=== PATIENT | male | born 1950 | race African-American/Black ===

== ENCOUNTER 2020-12-17 10:22 | Outpatient (CLI) | payer MEDICARE, SELFPAY ==
--- NOTE | 2020-12-17 10:30 | ECG_ITS ---
Measurements Intervals [place] Rate: 79 P: 77 [place]: 157 QRS: 49 QRSD: 77 T: 64 QT: 345 QTc: 396 Interpretive Statements SINUS RHYTHM BASELINE ARTIFACT- I, II, III, AVR, AVL, AVF NORMAL ECG Electronically Signed On 12-17-2020 11:20:54 CDT by Boo Bond D.O.
[2020-12-17 11:50] LABS: Basophils Percent Auto 0.4 % (0.2-1.2); Eosinophils Absolute Auto 0.1 K/mm3 (0-0.3); Eosinophils Percent Auto 1.3 % (0-4.4); Hematocrit 38.8 % (42.0-52.0); Hemoglobin 12.8 g/dL (14.0-18.0); Immature Granulocyte Absolute 0.04 K/mm3 (0.00-0.031); Immature Granulocyte Percent A 0.4 % (0-0.5); Lymphocytes Absolute Auto 1.33 K/mm3 (0.9-3.2); Lymphocytes Percent Auto 12.9 % (18.3-44.2); Mean Corpuscular Hemoglobin 30.5 pg (26-34); Mean Corpuscular Volume 92.4 fl (80-100); Mean Platelet Volume 10.6 fl (7.4-10.4); Monocytes Absolute Auto 0.9 K/mm3 (0.1-0.6); Neutrophils Absolute Auto 7.8 K/mm3 (1.3-6.7); Platelet Count Result 191 k/mm3 (150-375); Red Cell Distribution Width 11.5 % (11.5-14.5); White Blood Count 10.3 K/mm3 (4.5-10.0)
[2020-12-17 12:00] LABS: Prothrombin Time 14.1 Seconds (11.1-14.7)
[2020-12-17 12:05] LABS: Anion Gap 5 mmol/L (8-16); Blood Urea Nitrogen 17 mg/dL (9-20); Calcium 8.6 mg/dL (8.4-10.2); Carbon Dioxide 31 mmol/L (22-30); Chloride 105 mmol/L (98-107); Estimated Glomerular Filt Rate > 60; Glucose 198 mg/dL (75-110); Potassium 3.6 mmol/L (3.4-5.0); Sodium 141 mmol/L (137-145)
== END 2020-12-17 10:23 | disposition home or self-care (01) ==
LOC: ANHSURGERY 10:26
PROVIDERS: PCP Family Medicine; Visit Provider Urology
DX: N40.0 Benign prostatic hyperplasia without lower urinary tract symptoms (principal); E78.5 Hyperlipidemia, unspecified; I10 Essential (primary) hypertension; Z01.818 Encounter for other preprocedural examination
CPT/HCPCS: 36415; 80048; 85025; 85610; 85730; 87077; 87086; 87088; 87147; 87181; 87186; 93005

== ENCOUNTER → 2020-12-19 02:04 | Outpatient (CLI) | payer MEDICARE, SELFPAY ==
[2020-12-19 20:23] LABS: SARS-CoV-2 RNA PCR Negative
== END ==
PROVIDERS: PCP Family Medicine; Visit Provider Urology
DX: Z01.812 Encounter for preprocedural laboratory examination (principal); Z20.822 Contact with and (suspected) exposure to COVID-19
CPT/HCPCS: C9803; U0003; U0005

== ENCOUNTER 2020-12-23 15:02 | Observation (INO) | payer MEDICARE, SELFPAY ==
[2020-12-16 09:18] VITALS: BMI 24.2
[2020-12-22] VITALS (12 sets, daily range): BP systolic 125–163; BP diastolic 70–87; PULSE 72–87; RESP 14–20; TEMP 36.1–36.9; O2SAT 98–100
--- NOTE | 2020-12-22 09:53 | WPDHPUPDATE1 ---
History and Physical Update Update Date/Time: 12/22/20 09:53 History and Physical has been reviewed, including an updated exam of the patient. There are NO changes in the patient's condition. Risks, benefits, and alternatives have been discussed and questions answered. Patient agrees to proceed with procedure.
--- NOTE | 2020-12-22 10:43 | WPDANESEPPF ---
Anes - Initial Pre Proc Eval Procedure: Operation Date: 12/22/20 12:00 Proposed Procedures p Trans Urethral Resection Prostate - Donald Bustillo MD Date/Time: 12/22/20 10:43 Surgeon: Donald Bustillo MD Pre Op Diagnosis: BPH Patient Data Age: 70 Gender: M Height: 5 ft 9 in Weight: 74.5 kg Allergies Allergy/AdvReac Type Severity Reaction Status Date / Time No Known Allergies Allergy Verified 12/22/20 10:41 Home Medications Medication Instructions Recorded Confirmed Type atorvastatin 10 mg PO HS 12/16/20 12/16/20 History clopidogrel 75 mg PO DAILY 12/16/20 12/16/20 History ergocalciferol (vitamin D2) 1,250 mcg PO WEEKLY 12/16/20 12/16/20 History glipizide 10 mg PO DAILY 12/16/20 12/16/20 History levothyroxine 50 mcg PO DAILY 12/16/20 12/16/20 History lisinopril 5 mg PO DAILY 12/16/20 12/16/20 History metformin 1,000 mg PO DAILY 12/16/20 12/16/20 History tamsulosin 0.4 mg PO DAILY 12/16/20 12/16/20 History Patient hx anesthesia problems: none Family hx anesthesia problems: none [facility] Past Medical History Medical History (Updated 12/22/20 @ 10:42 by Gino Miguel MD) Diabetes Hyperlipidemia Hypertension Hypothyroid Social History Social History Years smoked: 1 Smoking status: Former smoker Smoking end date: 12/16/90 Alcohol intake: former Last use: 1 Living arrangements: with family Spiritual care concerns: No Anes - Eval Final PreProcedure Day of Procedure 12/22/20 10:43 Patient weight: normal Heart: regular rate and rhythm Lungs: clear to auscultation Airway: Mallampati scale class II Neurological: alert and oriented Last oral intake: >/= 8 hours ASA classification: III Emergent: no Anesthetic plan: proceed Anesthesia type and monitoring: general LMA and standard monitoring Informed Consent: The patient's anesthetic plan and its attendant risks and benefits were discussed with the patient/family/POA. Questions were solicited and answers provided to the satisfaction of the patient/family/POA.
[2020-12-22] MEDS: LACTATED RINGERS 1,000 ML 30 ML IV CONT ×2 (10:59→12:57)
--- NOTE | 2020-12-22 11:12 | WPDHPUPDATE1 ---
History and Physical Update Update Date/Time: 12/22/20 11:12 History and Physical has been reviewed, including an updated exam of the patient. There are NO changes in the patient's condition. Risks, benefits, and alternatives have been discussed and questions answered. Patient agrees to proceed with procedure.
[2020-12-22 11:17] LABS: Glucose Point of Care 119 (65-105)
[2020-12-22] MEDS: ceFAZolin 2 GM/D5W 50 ML 2 GM/50 ML BAG IVPB (11:29)
[2020-12-22] MEDS: LIDOCAINE HCL 2% GEL UROJET 10 ML PKG MUCOUS MEM (12:16)
--- NOTE | 2020-12-22 12:37 | P.OP_ITS ---
Procedure Note - Detailed Date of procedure: 12/22/20 Pre-op diagnosis: BPH Post-op diagnosis: same (Urinary retention) Procedure performed: Transurethral resection of prostate with urethral dilation Description of procedure: Patient is taken the operative suite and correctly identified. Once anesthesia was obtained he was placed in dorsal lithotomy position and prepped and draped usual sterile fashion. Urethra was dilated up to 28 Panamanian. 276 [place]ian resectoscope sheath was inserted in the bladder. There are no tumors noted. Patient is has a large median lobe in addition to the lateral lobes. Both ureteral orifices were visualized at all times. We started by taking down the sulcus at the 5 and 7 o'clock position. This was carried down from the bladder neck to the verumontanum. We then took down the lateral lobes in a similar fashion. The median lobe was taken down last. Chips were retrieved and sent for analysis. Hemostasis was achieved using electrocautery. 2% viscous lidocaine was inserted into the urethra. Twenty- four Panamanian [address] was placed with 30 cc in the balloon. This was connected to continuous bladder irrigation and placed on some gentle traction. He was taken recovery room stable condition. Anesthesia: GLMA Surgeon: Donald Bustillo MD Drains: Yes Packing: No Pathology: yes Complications: No immediate complications Condition: stable Disposition: PACU
[2020-12-22 12:57] LABS: Glucose Point of Care 98 (65-105)
--- NOTE | 2020-12-22 13:30 | SUR.PHASEI ---
1330 sbar faxed floor notified
--- NOTE | 2020-12-22 14:20 | ADMGEN ---
This patient, Marcello Echevarria Jr., was admitted to Medical Room 261-01. Patient/family oriented to hospital policies and general routines including ID bracelet, bed and alarms, visiting hours, pain management, procedures, bathroom and other care routines, personal items, smoking policy, room service/diet, and visiting hours. Information on how to activate the Rapid Response Team has been discussed. Patient/Family are encouraged to report perceived risks to care and to ask questions if they do not understand what they are told or what they should do.
[2020-12-22] MEDS: HYDROcodone/acetaminophen (*CRX) 5-325 MG TABLET 1 TAB PO (14:49)
[2020-12-22] MEDS: DEXTROSE 5%/LACTATED RINGERS 1,000 ML 125 ML IV CONT (14:50)
[2020-12-22] MEDS: DOCUSATE SODIUM 100 MG CAPSULE PO (16:47)
[2020-12-22 17:08] LABS: Glucose Point of Care 206 (65-105)
[2020-12-22] MEDS: ATORVASTATIN 10 MG TABLET PO (22:19)
[2020-12-23 03:56] VITALS: BP 150/61; PULSE 77; RESP 20; TEMP 36.5; O2SAT 99
[2020-12-23 05:54] LABS: Hematocrit 39.1 % (42.0-52.0)
[2020-12-23 06:09] LABS: Anion Gap 5 mmol/L (8-16); Blood Urea Nitrogen 17 mg/dL (9-20); Calcium 8.3 mg/dL (8.4-10.2); Carbon Dioxide 32 mmol/L (22-30); Chloride 101 mmol/L (98-107); Estimated CRCL calculation 57 ml/min; Estimated Glomerular Filt Rate > 60; Glucose 203 mg/dL (75-110); Potassium 4.3 mmol/L (3.4-5.0); Sodium 138 mmol/L (137-145)
[2020-12-23] MEDS: glipiZIDE 5 MG TABLET 10 MG PO (06:26)
[2020-12-23] MEDS: LEVOTHYROXINE SODIUM 50 MCG TABLET PO (06:27)
[2020-12-23] MEDS: metFORMIN HCL 500 MG TABLET 1000 MG PO (07:54)
[2020-12-23] MEDS: CEPHALEXIN 500 MG CAPSULE PO ×4 (07:55→20:48)
--- NOTE | 2020-12-23 08:00 | PC.NURSE ---
Dr. Bustillo on floor seen PT. this Am and shut off MD KAY requested automatic typewriter inspector to start hypoglycemic protocol.
[2020-12-23 08:02] LABS: Glucose Point of Care 144 (65-105)
--- NOTE | 2020-12-23 08:16 | WPDANESPN ---
Anes - Prog Note Post-Op Date/Time: 12/23/20 08:16 Cardiovascular status: normal Respiratory status: normal Airway patency: baseline Mental status: baseline Post-Op hydration status: normal Vital Signs: Last Vital Signs Temp 36.5 C 12/23/20 03:56 Pulse 77 12/23/20 03:56 Resp 20 12/23/20 03:56 BP 150/61 H 12/23/20 03:56 Pulse Ox 99 12/23/20 03:56 Pain Score (VAS): 0/10. Patient resting in bed at time of assessment, appears comfortable. I/O: Intake & Output 12/22/20 12/23/20 12/23/20 23:59 07:59 15:59 Intake Total 552 850 Output Total 300 2600 Balance 252 -1750 Laboratory Tests 12/23/20 05:12 12/23/20 05:12 12/22/20 12/22/20 12/22/20 11:15 12:52 17:04 Hgb Hct Sodium Potassium Chloride Carbon Dioxide Anion Gap BUN Creatinine Estim Creat Clear Calc Estimated GFR Glucose POC Capillary Glucose 119 H 98 206 H Calcium 12/23/20 12/23/20 12/23/20 05:12 05:12 07:53 Hgb 13.0 L Hct 39.1 L Sodium 138 Potassium 4.3 Chloride 101 Carbon Dioxide 32 H Anion Gap 5 L BUN 17 Creatinine 1.10 Estim Creat Clear Calc 57 Estimated GFR > 60 Glucose 203 H POC Capillary Glucose 144 H Calcium 8.3 L Post-procedural complaints: none Patient Feedback: Patient satisfied with anesthetic care.
[2020-12-23] MEDS: DOCUSATE SODIUM 100 MG CAPSULE PO ×2 (08:36→16:50)
[2020-12-23] MEDS: lisinopriL 5 MG TABLET PO (08:36)
[2020-12-23 10:00] VITALS: BP 167/68; PULSE 84; RESP 18; TEMP 36.6; O2SAT 100
[2020-12-23 12:16] LABS: Glucose Point of Care 126 (65-105)
[2020-12-23 14:00] VITALS: BP 165/83; PULSE 87; RESP 20; TEMP 36.6; O2SAT 98
--- NOTE | 2020-12-23 14:03 | PC.NURSE ---
Celsa Collins DIGITAL MEASUREMENT ADVISOR on floor and restarted the CBI at slow rate.
--- NOTE | 2020-12-23 14:36 | WPDUROPN2 ---
Progress Note: A&P Assessment and Plan (1) BPH (benign prostatic hyperplasia): Code(s): N40.0 - Benign prostatic hyperplasia without lower urinary tract symptoms Status: Acute Assessment and Plan: The patient's CBI was restarted, will keep overnight and encourage more activity. Wean CBI to off when clear, will re-evaluate in the morning. Subjective Subjective Date/Time Seen: 12/23/20 14:36 POD #1 TURP with urethral dilation. Urine is blood off of CBI for >5 hours with activity in the room. He is tolerating diet and fluids well. He had a BM this afternoon as well. Review of Systems Cardiovascular: Cardiovascular: Denies chest pain Respiratory: Respiratory: Denies no additional respiratory complaints Gastrointestinal: Gastrointestinal: Denies abdominal pain, Denies nausea and Denies vomiting Genitourinary: Genitourinary: Reports hematuria, Denies flank pain and Reports other (urinary retention) Exam Resp: Effort & Inspection: normal respiratory effort Cardio: Rate: regular rate GI: GI Palp: Yes Soft to palpation and No Tenderness to palpation present (GI) : General: Yes no CVA tenderness Urinary Catheter: Urinary Catheter: patent and draining and urine red Extrem: General: no edema Objective Data Vital Signs Vital Signs: Vital Signs - 24 hr 12/22/20 14:40 12/22/20 14:55 12/22/20 15:25 Temperature 97.0 F L 97.1 F L 97.0 F L Pulse Rate 77 77 72 Respiratory Rate 16 18 16 Blood Pressure 160/85 H 163/84 H 145/71 H Pulse Oximetry 99 100 98 12/22/20 18:00 12/22/20 21:23 12/23/20 03:56 Temperature 97 F L 97.2 F L 97.7 F Pulse Rate 75 76 77 Respiratory Rate 18 18 20 Blood Pressure 160/76 H 148/70 H 150/61 H Pulse Oximetry 100 100 99 12/23/20 10:00 Temperature 97.9 F Pulse Rate 84 Respiratory Rate 18 Blood Pressure 167/68 H Pulse Oximetry 100 Intake/Output Intake/Output: Intake & Output 12/20/20 12/21/20 12/22/20 12/23/20 23:59 23:59 23:59 23:59 Intake Total 1052 1120 Output Total 4100 2600 Balance -2123 -1152 Meds/Results Medications: Active Medications Generic Name Dose Route Start Last Admin Trade Name Freq PRN Reason Stop Dose Admin Hydrocodone Bitart/Acetaminophen 1 tab 12/22/20 14:11 12/22/20 14:49 Hydrocodone/Acetaminophen (*Crx) 5-325 Mg Tablet PO 1 tab Q4H PRN Administration Pain Rated 1-6 Atorvastatin Calcium 10 mg 12/22/20 21:00 12/22/20 22:19 Atorvastatin 10 Mg Tablet PO 10 mg HS MARGIE Administration Cephalexin HCl 500 mg 12/23/20 09:00 12/23/20 12:09 Cephalexin 500 Mg Capsule PO 500 mg QID MARGIE Administration Dextrose 12.5 gm 12/23/20 10:17 Dextrose 50% 25 Gm/50 Ml Syringe IV PUSH PRN PRN Hypoglycemia Protocol Docusate Sodium 100 mg 12/22/20 17:00 12/23/20 08:36 Docusate Sodium 100 Mg Capsule PO 100 mg BID MARGIE Administration Glipizide 10 mg 12/23/20 06:30 12/23/20 06:26 Glipizide 5 Mg Tablet PO 10 mg DAILY@0630 MARGIE Administration Glucagon 1 mg 12/23/20 10:17 Glucagon For Inj 1 Mg Vial IM PRN PRN Hypoglycemia Protocol Glucose 15 gm 12/23/20 10:17 Glucose Oral Gel 15 Gm Of Glucse In 37.5 Gm Tube PO PRN PRN Hypoglycemia Protocol Hyoscyamine 0.125 mg 12/22/20 14:11 Hyoscyamine Sulfate 0.125 Mg Tablet SUBLINGUAL Q6H PRN Bladder Spasm Dextrose 1,000 mls @ 100 mls/hr 12/23/20 10:17 Dextrose 5% 1,000 Ml IVPB PRN PRN Hypoglycemia Protocol Levothyroxine Sodium 50 mcg 12/23/20 06:30 12/23/20 06:27 Levothyroxine Sodium 50 Mcg Tablet PO 50 mcg DAILY@0630 MARGIE Administration Lisinopril 5 mg 12/23/20 09:00 12/23/20 08:36 Lisinopril 5 Mg Tablet PO 5 mg DAILY MARGIE Administration Metformin HCl 1,000 mg 12/23/20 08:00 12/23/20 07:54 Metformin Hcl 500 Mg Tablet PO 1,000 mg DAILY@0800 MARGIE Administration Morphine Sulfate 2 mg 12/22/20 14:11 Morphine Dos Santos
[2020-12-23 16:59] LABS: Glucose Point of Care 129 (65-105)
[2020-12-23 18:00] VITALS: BP 137/59; PULSE 82; RESP 18; TEMP 36.8; O2SAT 100
[2020-12-23] MEDS: ATORVASTATIN 10 MG TABLET PO (20:48)
[2020-12-23 21:03] LABS: Glucose Point of Care 275 (65-105)
[2020-12-23 21:13] VITALS: BP 129/66; PULSE 83; RESP 18; TEMP 36.8; O2SAT 100
[2020-12-24 04:13] VITALS: BP 134/68; PULSE 79; RESP 18; TEMP 36.4; O2SAT 100
[2020-12-24] MEDS: glipiZIDE 5 MG TABLET 10 MG PO (07:02)
[2020-12-24] MEDS: LEVOTHYROXINE SODIUM 50 MCG TABLET PO (07:02)
[2020-12-24 07:50] LABS: Glucose Point of Care 116 (65-105)
[2020-12-24] MEDS: lisinopriL 5 MG TABLET PO (09:01)
[2020-12-24] MEDS: metFORMIN HCL 500 MG TABLET 1000 MG PO (09:01)
[2020-12-24] MEDS: CEPHALEXIN 500 MG CAPSULE PO ×2 (09:02→13:05)
[2020-12-24] MEDS: DOCUSATE SODIUM 100 MG CAPSULE PO (09:02)
--- NOTE | 2020-12-24 09:04 | PM.DS ---
DS: Admitting Diagnosis Admitting Diagnosis Admitting Diagnosis: BPH DS: Discharge Diagnosis Discharge Diagnosis (1) BPH (benign prostatic hyperplasia): Code(s): N40.0 - Benign prostatic hyperplasia without lower urinary tract symptoms Status: Acute DS: Summary Hospital Course Hospital Course: See Below Time Spent with Patient Time attestation: The patient underwent a TURP with urethral dilation on 12/22/[address] Maude Bustillo. He tolerated the procedure well, went to recovery in stable condition and then went to the floor for further observation. He was tolerating his diet well, no nausea or abdominal pain. He did have gross hematuria when CBI was weaned to off, therefore it was restarted yesterday afternoon, I encouraged activity and it then became clear again early this morning and was weaned to off and the urine remains clear. He will be discharged home with a santana to be removed on Monday in the office. He should resume all home meds except Plavix, which should be held until Monday, and he can take Levsin PRN for bladder spasms. Diet as tolerated and activity as tolerated. Exam Resp: Effort & Inspection: normal respiratory effort Cardio: Rate: regular rate GI: GI Palp: Yes Soft to palpation and No Tenderness to palpation present (GI) : General: Yes no CVA tenderness Urinary Catheter: Urinary Catheter: patent and draining and urine clear Extrem: General: no edema DS: Data Data Completed and Pending Completed studies during hospitalization: Pending at discharge 12/22/20 12:18 Surgical [PTH] Routine Labs on day of discharge: Labs from last 24 hours 12/24/20 12/23/20 12/23/20 07:46 20:57 16:49 POC Capillary Glucose 116 H 275 H 129 H 12/23/20 12:08 POC Capillary Glucose 126 H Discharge Plan Discharge Attending physician on discharge: Donald Bustillo Discharging Clinician: Celsa Collins Anticipated Discharge Date/Time: 12/24/20 16:00 Patient Disposition: Home, Self-Care Activity: january shower Diet: diabetic Discharge Instructions: Follow up on Monday, December 28 at 9:45am to have santana removed. Call the office [phone] to report of fever of >102, bloody urine, blood clots or a catheter that is not draining. Perform daily catheter cleaning around penis. Patient Instructions: Antibiotic Form Stand Alone Forms: General Discharge Information Follow-up/Referrals: Donald Bustillo MD [Physician] - Discharge Medications: New hyoscyamine sulfate [Anaspaz] 0.125 mg Tablet,Disintegrating 0.125 mg sublingual Q6H PRN (Reason: Bladder Spasm) Qty: 12 RF: 0 Continued atorvastatin 10 mg tablet 10 mg PO HS RF: 0 glipizide 10 mg tablet 10 mg PO DAILY RF: 0 tamsulosin 0.4 mg capsule 0.4 mg PO DAILY RF: 0 levothyroxine 50 mcg tablet 50 mcg PO DAILY RF: 0 metformin 1,000 mg Tablet 1,000 mg PO DAILY RF: 0 lisinopril 5 mg tablet 5 mg PO DAILY RF: 0 ergocalciferol (vitamin D2) 1,250 mcg (50,000 unit) capsule 1,250 mcg PO WEEKLY RF: 0 Held clopidogrel 75 mg tablet 75 mg PO DAILY RF: 0 Hold Instructions: Resume on 12/26/20. Date of admission: 12/23/20 15:02 Primary Care Provider: Wes,[facility] Admitting Provider: Donald Bustillo Attending physician on admission: Donald Bustillo Condition: Improved
[2020-12-24 12:22] LABS: Glucose Point of Care 158 (65-105)
--- NOTE | 2020-12-24 12:59 | WPDUROPN2 ---
Progress Note: A&P Assessment and Plan (1) BPH (benign prostatic hyperplasia): Code(s): N40.0 - Benign prostatic hyperplasia without lower urinary tract symptoms Status: Acute Assessment and Plan: Okay to discharge home with santana attached to leg bag. Subjective Subjective Date/Time Seen: 12/24/20 12:59 POD #2 TURP with urethral dilation. Urine is conner on CBI, stopped it early this morning and encouraged activity. He is tolerating diet and fluids well. Denies pain. Review of Systems Cardiovascular: Cardiovascular: Reports chest pain Respiratory: Respiratory: Reports no additional respiratory complaints Gastrointestinal: Gastrointestinal: Denies abdominal pain, Denies nausea and Denies vomiting Genitourinary: Genitourinary: Denies hematuria Exam Cardio: Rate: regular rate GI: GI Palp: Yes Soft to palpation and No Tenderness to palpation present (GI) : General: Yes no CVA tenderness Urinary Catheter: Urinary Catheter: patent and draining and urine clear Extrem: General: no edema Objective Data Vital Signs Vital Signs: Vital Signs - 24 hr 12/23/20 14:00 12/23/20 18:00 12/23/20 21:13 Temperature 97.9 F 98.3 F 98.2 F Pulse Rate 87 82 83 Respiratory Rate 20 18 18 Blood Pressure 165/83 H 137/59 L 129/66 Pulse Oximetry 98 100 100 12/24/20 04:13 Temperature 97.5 F L Pulse Rate 79 Respiratory Rate 18 Blood Pressure 134/68 Pulse Oximetry 100 Intake/Output Intake/Output: Intake & Output 12/21/20 12/22/20 12/23/20 12/24/20 23:59 23:59 23:59 23:59 Intake Total 1052 1630 630 Output Total 4100 2600 2750 [facility] -3048 -970 -2120 Meds/Results Medications: Active Medications Generic Name Dose Route Start Last Admin Trade Name Freq PRN Reason Stop Dose Admin Hydrocodone Bitart/Acetaminophen 1 tab 12/22/20 14:11 12/22/20 14:49 Hydrocodone/Acetaminophen (*Crx) 5-325 Mg Tablet PO 1 tab Q4H PRN Administration Pain Rated 1-6 Atorvastatin Calcium 10 mg 12/22/20 21:00 12/23/20 20:48 Atorvastatin 10 Mg Tablet PO 10 mg HS MARGIE Administration Cephalexin HCl 500 mg 12/23/20 09:00 12/24/20 09:02 Cephalexin 500 Mg Capsule PO 500 mg QID MARGIE Administration Dextrose 12.5 gm 12/23/20 10:17 Dextrose 50% 25 Gm/50 Ml Syringe IV PUSH PRN PRN Hypoglycemia Protocol Docusate Sodium 100 mg 12/22/20 17:00 12/24/20 09:02 Docusate Sodium 100 Mg Capsule PO 100 mg BID MARGIE Administration Glipizide 10 mg 12/23/20 06:30 12/24/20 07:02 Glipizide 5 Mg Tablet PO 10 mg DAILY@0630 MARGIE Administration Glucagon 1 mg 12/23/20 10:17 Glucagon For Inj 1 Mg Vial IM PRN PRN Hypoglycemia Protocol Glucose 15 gm 12/23/20 10:17 Glucose Oral Gel 15 Gm Of Glucse In 37.5 Gm Tube PO PRN PRN Hypoglycemia Protocol Hyoscyamine 0.125 mg 12/22/20 14:11 Hyoscyamine Sulfate 0.125 Mg Tablet SUBLINGUAL Q6H PRN Bladder Spasm Dextrose 1,000 mls @ 100 mls/hr 12/23/20 10:17 Dextrose 5% 1,000 Ml IVPB PRN PRN Hypoglycemia Protocol Levothyroxine Sodium 50 mcg 12/23/20 06:30 12/24/20 07:02 Levothyroxine Sodium 50 Mcg Tablet PO 50 mcg DAILY@0630 MARGIE Administration Lisinopril 5 mg 12/23/20 09:00 12/24/20 09:01 Lisinopril 5 Mg Tablet PO 5 mg DAILY MARGIE Administration Metformin HCl 1,000 mg 12/23/20 08:00 12/24/20 09:01 Metformin Hcl 500 Mg Tablet PO 1,000 mg DAILY@0800 MARGIE Administration Morphine Sulfate 2 mg 12/22/20 14:11 Morphine Sulfate (*Crx) 2 Mg/Ml Inj IV PUSH Q2H PRN Pain Rated 7-10 Naloxone HCl 0.1 mg 12/22/20 14:11 Naloxone Hcl 0.4 Mg/Ml Vial IV PUSH Q2M PRN Opiate Reversal Ondansetron HCl 4 mg 12/22/20 14:11 Ondansetron Inj 4 Mg/2 Ml Vial IV PUSH Q12H PRN Nausea And Vomiting Labs Labs: Laboratory Results - last 24 hr 12/23/20 12/23/20 12/24/20 16:49 20:57 07:46
== END 2020-12-24 14:00 | disposition home or self-care (01) ==
LOC: ANHSURGERY 15:04 → ANH2MED 15:04
PROVIDERS: Admitting Provider Urology; PCP Family Medicine; Visit Provider Urology
PROC: 0VT08ZZ Resection of Prostate, Via Natural or Artificial Opening Endoscopic (ICD-10-PCS; CPT 52601; principal; 2020-12-22 12:00)
DX: N40.0 Benign prostatic hyperplasia without lower urinary tract symptoms (principal); R31.0 Gross hematuria; I10 Essential (primary) hypertension; E78.5 Hyperlipidemia, unspecified; E03.9 Hypothyroidism, unspecified; E11.9 Type 2 diabetes mellitus without complications; Z87.891 Personal history of nicotine dependence; Z79.84 Long term (current) use of oral hypoglycemic drugs
CPT/HCPCS: 52601; 36415; 80048; 82948; 85014; 85018; 85025; 85610; 85730; 87077; 87086; 87088; 87147; 87181; 87186; 88305; 93005; A9270; C9803; G0378; J0690; J1100; J2405; J2704; J3010; J7120; J7121; U0003; U0005

== ENCOUNTER 2020-12-29 06:46 | Emergency (ER) | payer MEDICARE, SELFPAY ==
[2020-12-29] VITALS (7 sets, daily range): BP systolic 116–176; BP diastolic 75–87; PULSE 85–106; RESP 15–20; TEMP 36.8; O2SAT 97–100
--- NOTE | 2020-12-29 07:05 | ED.MALEGU ---
HPI - Male Genitourinary General Chief complaint: Urogenital-Male Stated complaint: cannot urinate Time Seen by Provider: 12/29/20 07:04 Source: patient and family Mode of arrival: ambulatory Limitations: no limitations History of Present Illness HPI Narrative: Patient is a 70-year-old male with history of hypertension, recent TURP with urethral dilatation 12/22, who presents for evaluation of difficulty with urination. Patient states that he was seen in office yesterday by Dr. Bustillo for post op follow up, had his Alcantar catheter removed in office, and was able to have some dribbling urination overnight, but started to experience some abdominal distention and inability to urinate this morning. Patient has had some hematuria. He is denying any dysuria. He denies fever, chills or abdominal pain.Pt was started on Levsin PRN for bladder spasm; pt reports he is taking an antibiotic, but I do not see record of this anywhere in the discharge summary. Related Data Home Medications Medication Instructions Recorded Confirmed atorvastatin 10 mg PO HS 12/16/20 12/22/20 clopidogrel 75 mg PO DAILY 12/16/20 12/16/20 ergocalciferol (vitamin D2) 1,250 mcg PO WEEKLY 12/16/20 12/16/20 glipizide 10 mg PO DAILY 12/16/20 12/22/20 levothyroxine 50 mcg PO DAILY 12/16/20 12/22/20 lisinopril 5 mg PO DAILY 12/16/20 12/22/20 metformin 1,000 mg PO DAILY 12/16/20 12/22/20 tamsulosin 0.4 mg PO DAILY 12/16/20 12/22/20 Allergies Allergy/AdvReac Type Severity Reaction Status Date / Time No Known Allergies Allergy Verified 12/22/20 14:26 Review of Systems Review of Systems: Narrative: CONSTITUTIONAL: Denies fever, chills CARDIOVASCULAR: Denies chest pain RESPIRATORY: Denies cough or dyspnea. GASTROINTESTINAL: Denies abdominal pain, nausea, vomiting, or diarrhea. GENITOURINARY: Denies dysuria, reports hematuria SKIN: Denies rash or itching. MUSCULOSKELETAL: Denies back pain NEUROLOGIC: Denies headache [facility] Past Medical History Medical History (Updated 12/29/20 @ 08:34 by Adamaris Macdonald MD) BPH (benign prostatic hyperplasia) Diabetes Hyperlipidemia Hypertension Hypothyroid Surgical History Surgical History (Updated 12/29/20 @ 07:34 by Adamaris Macdonald MD) S/P TURP Social History Social History Smoking packs per day: 0.25 Smoking cigarettes per day: 5.0 Years smoked: 1 Smoking pack-years: 0.25 Smoking status: Former smoker Additional smoking assessment comments: 40 years ago Alcohol intake: former Substance use: never Last use: 1 Gender identity (if verbalized by the patient): Male Spiritual care concerns: No Exam Narrative: Exam Narrative: GENERAL: Awake, alert, conversant HEAD: Normocephalic, atraumatic. EYES: PERRLA and EOMI. ENT: Nares clear, no rhinorrhea or epistaxis. Mucous membranes moist. NECK: Supple. CHEST: No respiratory distress, breathing even and non labored HEART: Regular rate, sinus rhythm ABDOMEN:Mild distension, non tender EXTREMITIES: Normal range of motion. No edema. SKIN: Warm, dry, no rash. NEURO:No focal deficits. Alert and oriented x3 Course Vital Signs Vital signs: Vital Signs Temperature 36.8 C 12/29/20 06:55 Pulse Rate 106 H 12/29/20 06:55 Respiratory Rate 20 12/29/20 06:55 Blood Pressure 176/87 H 12/29/20 06:55 Pulse Oximetry 97 12/29/20 06:55 Temperature 36.8 C 12/29/20 06:55 Pulse Rate 85 12/29/20 08:09 Respiratory Rate 15 12/29/20 08:09 Blood Pressure 116/75 12/29/20 08:09 Pulse Oximetry 98 12/29/20 08:09 MDM - Male Genitourinary MDM Narrative Medical decision making narrative: Pt presented for urinary retention after voiding trial yesterday in office with urologist. The time of arrival to the ER, patient is hypertensive, has not taken his morning blood pressure medications. Denying any chest pain, shortness of breath. No other anginal type symptoms. Pt with dark
--- NOTE | 2020-12-29 07:10 | PC.NURSE ---
PILAR DAVILA AT BEDSIDE.
[2020-12-29 07:41] LABS: Add Urine Microscopic? YES; Appearance Urine Cloudy (Clear); Bilirubin Urine Negative (Negative); Blood Urine 3+ (Negative); Budding Yeast Urine Present /hpf; Color Urine Amber (Yellow); Glucose Urine UA 3+ mg/dL (Negative); Ketones Urine Negative (Negative); Leukocyte Esterase Ur Negative LEU/UL (Negative); Nitrate Urine Negative (Negative); Protein Urine 3+ mg/dL (Negative); RBC Urine >75 /hpf (0-2); Specific Grav Ur 1.014 (1.001-1.035); Urobilinogen Urine Negative mg/dL (<2.0); WBC Urine 31-50 /hpf
[2020-12-29] MEDS: lisinopriL 5 MG TABLET PO (08:07)
[2020-12-29 08:15] LABS: Anion Gap 7 mmol/L (8-16); Blood Urea Nitrogen 20 mg/dL (9-20); Calcium 8.8 mg/dL (8.4-10.2); Carbon Dioxide 29 mmol/L (22-30); Chloride 102 mmol/L (98-107); Estimated CRCL calculation 53 ml/min; Estimated Glomerular Filt Rate > 60; Glucose 279 mg/dL (75-110); Potassium 4.4 mmol/L (3.4-5.0); Sodium 138 mmol/L (137-145)
--- NOTE | 2020-12-29 08:37 | PC.NURSE ---
PILAR Macdonald at bedside for results.
== END 2020-12-29 08:56 | disposition home or self-care (01) ==
PROVIDERS: Emergency Provider Emergency Medicine; PCP Family Medicine
DX: N30.01 Acute cystitis with hematuria (principal); R33.9 Retention of urine, unspecified; Z87.891 Personal history of nicotine dependence; E11.9 Type 2 diabetes mellitus without complications; Z79.84 Long term (current) use of oral hypoglycemic drugs; I10 Essential (primary) hypertension; E03.9 Hypothyroidism, unspecified; E78.5 Hyperlipidemia, unspecified; N40.0 Benign prostatic hyperplasia without lower urinary tract symptoms
CPT/HCPCS: 36415; 80048; 81001; 87086; 99283; A9270